=== PATIENT | female | born 1970 | race Caucasian/White ===

== ENCOUNTER 2019-04-05 11:02 | Outpatient (CLI) | payer MEDICAID, SELFPAY ==
[2019-04-05 11:07] VITALS: BMI 38.6
--- NOTE | 2019-04-05 11:10 | ECG_ITS ---
NAME OF STUDY: TREADMILL STRESS TEST INDICATION: Chest Pain EXERCISE DATA: The patient was exercised by Jaime protocol. Baseline heart rate was 110 beats per minute. Baseline blood pressure was 121/85 millimeters of mercury. Target heart rate was 171 beats per minute. Maximum heart rate achieved was 144, which was 84 % of the target heart rate. Maximum blood pressure was 152/92 millimeters of mercury. Total exercise time was 3 minutes 51 seconds. Maximum METs achieved was 7.0, maximum VO2 was 24.5. The reason for ending the test was symptom effort achieved. The patient complained of shortness of breath during the stress which then resolved. ELECTROCARDIOGRAM: BASELINE: Showed sinus rhythm, right axis, no significant ST-T changes at the baseline noted. No arrhythmia noted. EXERCISE: At the peak exercise level, no significant ST-T changes suggestive of ischemia noted. No arrhythmia noted. RECOVERY: During the recovery period, heart rate dropped appropriately. No significant ST-T changes suggestive of ischemia were noted. No arrhythmia noted. CONCLUSION: 1. Exercise capacity poor. 2. Heart rate response was tachycardic. 3. Blood pressure response was appropriate. 4. Symptoms not suggestive of ischemia. 5. Electrocardiogram portion of the stress test was not suggestive of ischemia. 6. This is suboptimal stress test due to poor exercise capacity therefore sensitivity and specificity of EKG portionof the stress test will be low. Electronically Signed On 04-05-2019 14:13:12 HOME DEPOT REP by Oneyda Yuen M.D. [email or web address]
[2019-04-05 12:04] VITALS: BP 103/69; PULSE 69
== END 2019-04-05 11:03 | disposition home or self-care (01) ==
PROVIDERS: Family Provider Family Medicine; PCP Family Medicine; Visit Provider Nurse Practitioner Family
DX: I49.9 Cardiac arrhythmia, unspecified (principal); Z82.49 Family history of ischemic heart disease and other diseases of the circulatory system; R06.00 Dyspnea, unspecified; R07.9 Chest pain, unspecified
CPT/HCPCS: 93017

== ENCOUNTER 2019-11-03 13:25 | Emergency (ER) | payer MEDICAID, SELFPAY ==
[2019-11-03 13:29] VITALS: BP 117/80; PULSE 84; RESP 18; TEMP 36.7; O2SAT 95; BMI 39.8
--- NOTE | 2019-11-03 13:42 | W.ED.EXTPRO ---
HPI - Extremity Problem General: Chief complaint: Extremity Problem,Nontraumatic Stated complaint: KNEE PAIN Time Seen by Provider: 11/03/19 13:30 History of Present Illness: HPI Narrative: Patient complains of twisting right knee yesterday and and knee hurting since. Patient arrived via ambulance because she had no ride in. Patient is on pain contract with the pain clinic in [place] says she only receives Celebrex for her pain. Complaint: joint pain Onset (ago): day(s) Pain Consistency: constant Location: right and knee Severity scale (1-10): 5 Quality: aching Radiation: none Relieving factors: immobilization Exacerbating factors: range of motion and weight bearing Associated symptoms: Reports no associated symptoms; Deny chest pain, fever(s) or rash Review of Systems Const: Denies: fever(s), chills or body aches Eyes: Denies: change in vision or blurry vision ENMT: Denies: throat pain or nasal congestion Card: Denies: chest pain or dyspnea on exertion Resp: Denies: dyspnea, productive cough or non-productive cough GI: Denies: abdominal pain, nausea or vomiting Musc: Reports: joint pain (Twisted knee while walking no bony injury that she is aware of); Denies: extremity pain Skin/Breast: Denies: rash Neuro: Denies: headache(s) Psych: Denies: anxiety or depression Felix/Lymph: Denies: easy bruising [facility] ED PFSH: Medical History (Updated 11/03/19 @ 13:45 by SALAZAR Boone) Other pulmonary embolism without acute cor pulmonale Family History Other Diabetes Heart disease Hypertension Lung disease Social History Smoking and tobacco status: current every day smoker cigarettes Packs smoked per day: 0.5 and e-cigarettes E-Cigarette Details: vaporizer device and with nicotine Physical Exam Const: COMMON NORMALS: no acute distress, average body habitus and patient oriented x3 HENMT: COMMON NORMALS: normocephalic HEAD & SCALP: normal to inspection and normocephalic FACE & SINUS: normal facial exam Eye: COMMON NORMALS: conjunctivae normal GENERAL EYE: appearance normal, both eyes and all related structures CONJUNCTIVA: Yes conjunctivae normal Neck/C-Spine: COMMON NORMALS: no JVD Chest: COMMONS NORMALS: normal inspection of the chest Resp: COMMON NORMALS: normal respiratory effort and clear to auscultation bilaterally AUSCULTATION: clear to auscultation bilaterally Cardio: COMMON NORMALS: no JVD, regular rate and regular rhythm RATE: regular rate RHYTHM: regular rhythm GI: COMMON NORMALS: Normal to inspection, nondistended, normoactive bowel sounds present Extremity: RIGHT LOWER EXTREMITY: Yes knee joint (Mild pain with range of motion does have no laxity noted possible mild swelling but patient is obese no erythema noted distal neurovascular intact.) Neuro: COMMON NORMALS: patient oriented x3 Course Vital Signs: Vital signs: Vital Signs Temperature 98.1 F 11/03/19 13:29 Pulse Rate 84 11/03/19 13:29 Respiratory Rate 18 11/03/19 13:29 Blood Pressure 117/80 11/03/19 13:29 Pulse Oximetry 95 11/03/19 13:29 Discharge Plan Discharge Patient Disposition: Home Clinical Impression: Knee sprain Qualifiers: Encounter type: initial encounter Involved ligament of knee: unspecified ligament Laterality: right Qualified Code(s): S83.91XA - Sprain of unspecified site of right knee, initial encounter Condition: Stable Prescriptions: New tramadol 50 mg tablet 50 mg PO Q8H PRN (Reason: pain) Qty: 7 RF: 0 No Action duloxetine [Cymbalta] 60 mg capsule,delayed release(DR/EC) 60 mg PO BID RF: 0 hydroxyzine pamoate [Vistaril] 25 mg capsule 50 mg PO .QHS PRNRF: 0 aripiprazole [Abilify] 2 mg tablet 2 mg PO ONCE RF: 0 mirtazapine [Remeron] 30 mg tablet 30 mg PO .QHS RF: 0 sennosides [senna] 8.6 mg tablet 34.4 mg PO .QHS RF: 0 nitroglycerin [Nitrostat] 0.4 mg tablet, sublingual 0.4 mg SUBLINGUAL Q5M PRNRF: 0 oxycodone-acetaminophen 10-325 mg tablet 1 tab PO Q4H PRNRF: 0 sumatriptan succinate 100 mg tablet 100 mg PO ONCE PRN (Reason: migraine headache) RF: 0 omeprazole 40 mg capsule,delayed release(DR/EC) 40 mg PO DAILY RF: 0 albuterol sulfate 90 mcg/actuation HFA aerosol inhaler 2 puff INHALATION QID PRN (Reason: shortness of breath) RF: 0 tizanidine 4 mg capsule 4 mg PO TID PRNRF: 0 ibuprofen 600 mg tablet 600 mg PO TID PRN (Reason: fever or pain) RF: 0 Discharge Orders: Discharge Order (Routine); Ordered 11/03/19 Ordered By: Rafal Rea Referrals: Cindi Horn MD [Primary Care Provider] - Discharge Diet: Usual diet Discharge Activity: Increase activity as tolerated and Use walker/crutches as instructed Patient Instructions: Knee Sprain (ED) Activity Restrictions/Additional Instructions: Follow-up with medical provider as directed. Take medications as prescribed. Return to the ER or your medical provider if condition worsens. Please read and understand discharge instructions. If any questions ask please. Apply ice to the knee as needed follow-up Dr. Horn for consultation notify pain clinic that you were given tramadol in the ER. Coding Level of Care Code ED Package Center Supervisor for Dodieg Fwd Exam Comprehensive
[2019-11-03 14:35] VITALS: BP 118/74; PULSE 82; RESP 18; O2SAT 92
== END 2019-11-03 14:44 | disposition home or self-care (01) ==
LOC: ER 13:54
PROVIDERS: Emergency Provider Nurse Practitioner Family; PCP Family Medicine
DX: S83.91XA Sprain of unspecified site of right knee, initial encounter (principal); F17.210 Nicotine dependence, cigarettes, uncomplicated; X50.1XXA Overexertion from prolonged static or awkward postures, initial encounter
CPT/HCPCS: 12345; 29530; 99281; 99283; E0114

== ENCOUNTER 2019-11-24 10:38 | Outpatient (CLI) | payer MEDICAID, SELFPAY ==
--- NOTE | 2019-11-24 10:45 | XR_ITS ---
WS: [id number] KNEE RIGHT TECHNIQUE: 4 views of the right knee CLINICAL INFORMATION: RIGHT KNEE PAIN COMPARISON: None. FINDINGS: Right knee is normal in appearance. No evidence of acute fracture dislocation. No significant effusio n. Patella is normal. XR/XR knee RT 4V [id number] IMPRESSION: Normal right knee.
== END 2019-11-24 10:39 | disposition home or self-care (01) ==
LOC: RADWPI 10:42
PROVIDERS: PCP Nurse Practitioner Family; Visit Provider Nurse Practitioner Family
DX: M25.561 Pain in right knee (principal)
CPT/HCPCS: 73564

== ENCOUNTER 2023-01-14 09:26 | Outpatient (CLI) | payer MEDICAID, SELFPAY ==
--- NOTE | 2023-01-14 11:00 | ECG_ITS ---
[facility] Test Date: 2023-01-14 Pat Name: Maria A Camp Department: Room: Gender: Female [employer]: : 1970 Requested By: Finn Nayak Order Number: [id number] Fran MD: Lorena Gilman M.D. Interpretive Statements NAME OF STUDY: LEXISCAN SESTAMIBI STRESS TEST INDICATION: Chest Pain PROCEDURE: At the baseline, the blood pressure was 131/79 mmHg with a heart rate of 77 bpm. The electrocardiogram showed sinus rhythm, normal axis with normal ST and T's. ??? The Lexiscan was infused over a period of 20 seconds. A total of 0.4 milligrams of Lexiscan was infused. The stress phase was continued for a total of 5 minutes. Heart rate at the end of the stress phase was 98 bpm with a blood pressure of 121/82 mmHg. The EKG at the peak infusion revealed sinus rhythm with no significant ST-T wave changes. ??? Sestamibi was injected 20 seconds after the Lexiscan infusion. ??? Blood pressure at the end of the recovery phase was 119/82 mmHg with a heart rate of 97 beats per minute. ??? CONCLUSION: 1. No significant EKG changes with the LexiScan infusion. 2. No LexiScan induced chest pain or cardiac arrhythmia. 3. Normal blood pressure and heart rate response. 4. Sestamibi/sestamibi perfusion scan pending; see separate report. Electronically Signed On 01-14-2023 15:48:40 CDT by Lorena Gilman M.D. [email or web address]
--- NOTE | 2023-01-14 11:07 | NMCV_ITS ---
NM kanika perf SPECT r/s* [id number] Maria A Camp Age: 52 Gender: F : 1970 Exam Date: 01/14/2023 11:08 Ordering Phys: Finn Nayak M.D Technologist: ELFEGO Miller Exam Location: [facility] Indications: CHEST PAIN, SHORTNESS OF BREATH STRESS TEST Please see separate stress test report in [facility] for full findings IMAGE PROTOCOL Rest/Stress 1 Lexiscan Day Radiopharmaceutical Dose (mCi) Administration Site Administered by Rest: Tc-99m 10.9 IV ELFEGO [place] Sestamibi Stress:Tc-99m 32.9 IV ELFEGO [place] Sestamibi Rest: 14-Jan-2023 60 Discovery 630 Stress: 14-Jan-2023 30 Discovery 630 0.4mg Lexiscan. Images obtained in supine and prone position. SPECT RESULTS Technical Quality: Excellent Raw Data Analysis: Normal Image Corrections: No attenuation or motion correction applied Summed Stress Score: 0 Summed Rest Score: 0 Summed Difference Score: 0 PERFUSION FINDINGS SPECT images demonstrate homogeneous tracer distribution throughout the myocardium. FUNCTIONAL RESULTS (calculated via Gated SPECT) Stress Image LV EF (%): 59 Stress EDV (mL):87 TID: 0.83 Stress ESV (mL):36 FUNCTIONAL FINDINGS: The left ventricle is normal in size. Transient Ischemia Dilatation of 0.83. The left ventricular ejection fraction is normal with a value of 59%. There is normal left ventricular wall thickening. IMPRESSIONS 1. Myocardial perfusion imaging is normal. 2. Overall left ventricular systolic function is normal without regional wall motion abnormalities, LVEF=59%. 3. No EKG changes with Lexiscan infusion. Refer to separate report for details. 4. Scan indicates low risk for cardiac events. Lorena Gilman MD (Electronically Signed) Final Date: 14 January 2023 15:46 S
[2023-01-14 11:10] VITALS: BMI 30.9
[2023-01-14] MEDS: regadenoson 0.4 Mg/5 ml Syringe IVP (12:02)
--- NOTE | 2023-01-14 13:29 | USCV_ITS ---
Maria A Camp Age: 52 Gender: F : 1970 Exam Date: 01/14/2023 14:02 Ordering Phys: Finn Nayak M.D Technologist: Exam Location: [facility] [place] Indication: chest pain, palpitations BP: 130 / 75 HR: 69 Rhythm: Sinus Technical Quality: Adequate MEASUREMENTS (Male / Female) Normal Values 2D ECHO LVOT Diameter 2.1 cm LV Ejection Fraction MOD 2C 69.8 % LV Ejection Fraction 2C AL 69.7 % LA Diameter 2.7 cm M-MODE Aortic Annulus Diameter 3.5 cm LA Ao Ratio MM 0.8 MV E Point Septal Separation 1.2 cm DOPPLER AV Peak Velocity 125.0 cm/s LVOT Peak Velocity 98.0 cm/s AV Area Cont Eq vti 2.9 cm squared AV Area Cont Eq pk 2.6 cm squared MV Area PHT 3.7 cm squared Mitral E to A Ratio 0.8 MV E' Velocity 43.5 cm/s Mitral E to MV E' Ratio 6.5 Mitral E to LV E' Lateral Ratio 6.2 Mitral E to LV E' Septal Ratio 6.9 TR Peak Velocity 106.3 cm/s TR Peak Gradient 4.5 mmHg TV Peak E Velocity 98.0 cm/s Right Atrial Pressure 3.0 mmHg Pulmonary Artery Systolic Pressu 7.5 mmHg FINDINGS Left Ventricle Normal left ventricular size, systolic function and wall thickness, with no regional wall motion abnormalities. Left ventricular ejection fraction is estimated at 60 %. Abnormal septal motion. Normal diastolic function. Right Ventricle Normal right ventricular size and systolic function. RVSP could not be calculated due to incomplete tricuspid regurgitation velocity profile. Right Atrium Normal right atrial size. Left Atrium Normal left atrial size. Mitral Valve Structurally normal mitral valve. No mitral valve stenosis. No mitral valve regurgitation. Aortic Valve Structurally normal trileaflet aortic valve. No aortic valve stenosis. No aortic valve regurgitation. Tricuspid Valve Structurally normal tricuspid valve. No tricuspid valve stenosis. Trace tricuspid valve regurgitation. Pulmonic Valve Structurally normal pulmonic valve. No pulmonary valve stenosis. No pulmonary valve regurgitation. Pericardium No pericardial effusion. Aorta Normal size aortic root and proximal ascending aorta. IVC Inferior vena cava not visualized. CONCLUSIONS 1. Normal left ventricular size, systolic function and wall thickness, with no regional wall motion abnormalities. Left ventricular ejection fraction is estimated at 60 %. Abnormal septal motion. Normal diastolic function. 2. No significant valvular abnormality. 3. No change when compared to study dated 01/15/2016. Lorena Gilman MD (Electronically Signed) Final Date: 14 January 2023 15:53 S
[2023-01-14 14:07] VITALS: BP 119/82; PULSE 97
== END 2023-01-14 09:27 | disposition home or self-care (01) ==
LOC: RAD 09:28
PROVIDERS: PCP Nurse Practitioner Family; Visit Provider Internal Medicine Cardiovascular Disease
DX: I49.9 Cardiac arrhythmia, unspecified (principal); R07.9 Chest pain, unspecified; R06.09 Other forms of dyspnea; R55 Syncope and collapse
CPT/HCPCS: 36415; 78452; 93017; 93306; 96374; A9500; J2785

== ENCOUNTER 2023-03-18 13:05 | Outpatient (CLI) | payer MEDICAID, SELFPAY ==
--- NOTE | 2023-03-18 13:14 | CTR_ITS ---
PROCEDURE INFORMATION: Exam: CT Neck With Contrast Exam date and time: 03/18/2023 2:07 PM Age: 53 years old Clinical indication: Prior surgery; Surgery date: 6+ months; Surgery type: Ear implant; Patient HX: C/O pain behind left ear with vibrating sensation. ; Additional info: Otalgia, L ear TECHNIQUE: Imaging protocol: Computed tomography of the neck with contrast. Radiation optimization: All CT scans at this facility use at least one of these dose optimization techniques: automated exposure control; mA and/or kV adjustment per patient size (includes targeted exams where dose is matched to clinical indication); or iterative reconstruction. Contrast material: OMNI 350; Contrast volume: 100 ml; Contrast route: INTRAVENOUS (IV); REPORTING DATA: Count of CT and Cardiac NM exams in prior 12 months: This patient has received [address] and 0 known cardiac nuclear medicine studies in the 12 months prior to the current study. COMPARISON: CT angio chest PE protcl [id number] 02/28/2019 9:36 PM RADIATION DOSE METRICS: Total DLP (mGy-cm): 173.02 FINDINGS: Pharynx: Unremarkable. No significant tonsillar enlargement. Larynx: Unremarkable. Epiglottis is normal. Prevertebral and retropharyngeal spaces: Unremarkable. Salivary glands: Normal. Glands are normal in size. Thyroid: Normal. No enlarged or calcified nodules. Lymph nodes: Mild lymph node enlargement in left submandibular space. Largest node measures up to 1.3 cm. Trachea: Visualized trachea is unremarkable. Lungs: Unremarkable as visualized. Bones/joints: Mild cervical spondylosis. Soft tissues: Unremarkable. No significant soft tissue swelling. CT/CT neck w con* [id number] IMPRESSION: Mild lymph node enlargement in left submandibular space. Largest node measures up to 1.3 cm. No definite mass lesion or evidence of abscess.
[2023-03-18] MEDS: iohexol 350 mg/mL 500 mL Btl (per mL) IV (14:07)
== END 2023-03-18 13:06 | disposition home or self-care (01) ==
LOC: RAD 13:06
PROVIDERS: PCP Nurse Practitioner Family; Visit Provider Specialist
DX: H92.02 Otalgia, left ear (principal); R59.0 Localized enlarged lymph nodes
CPT/HCPCS: 70491; Q9967

== ENCOUNTER 2023-04-17 10:21 | Outpatient (CLI) | payer MEDICAID, SELFPAY ==
--- NOTE | 2023-04-17 10:31 | XR_ITS ---
WS: [id number] XR knee LT 3V* [id number] REASON FOR EXAM: L KNEE PAIN FINDINGS: No fracture or focal bone lesion. Mild narrowing of the medial knee joint space with moderate subchondral sclerosis and mild marginal o steophytosis. Mild narrowing of the lateral knee joint space with moderate subchondral sclerosis and mild marginal osteophytosis. The patellofemoral joint space appears intact and relatively well preserved. There is mild subchondra l sclerosis and osteophytosis of the patella. IMPRESSION: Moderate osteoarthritis of the left knee.
== END 2023-04-17 10:22 | disposition home or self-care (01) ==
PROVIDERS: PCP Nurse Practitioner Family; Visit Provider Family Medicine
DX: M17.12 Unilateral primary osteoarthritis, left knee (principal)
CPT/HCPCS: 73562

== ENCOUNTER 2023-05-15 13:30 | Outpatient (CLI) | payer MEDICAID, SELFPAY ==
--- NOTE | 2023-05-15 13:35 | CT_ITS ---
WS: [id number] LDCT LUNG CANCER SCREENING TECHNIQUE: Noncontrast CT of the chest with coronal and sagittal reformatted images. CLINICAL INFORMATION: NICOTINE DEPENDENCE, MORE THAN 20 PACK YEARS COMPARISON: None. DLP: 57.71 mGy.cm DIvol: Mean CTDIvol: 1.40 (mGy) All CT scans at [facility] use at least one of these dose optimization techniques: automat ed exposure control; mA and/or kV adjustment per patient size (includes targeted exams where dose is matched to clinical indication); or iterative reconstruction. FINDINGS: Lungs are well aerated. No acute pulmonary infiltrates. No suspicious pulmonary parenchymal opacities. Normal caliber thoracic aorta. No mediastinal or hilar lymphadenopathy. No axillary lymphadenopathy. Cholecystectomy clips. IMPRESSION: CT/CT lung screening [id number] LUNG-RADS: 1-Negative FOLLOW UP: 12 Month: Continue annual screening with LDCT
== END 2023-05-15 13:31 | disposition home or self-care (01) ==
LOC: RAD 13:31
PROVIDERS: PCP Nurse Practitioner Family; Visit Provider Family Medicine
DX: F17.210 Nicotine dependence, cigarettes, uncomplicated (principal)
CPT/HCPCS: 71271

== ENCOUNTER 2023-06-02 10:11 | Outpatient (CLI) | payer MEDICAID, SELFPAY ==
--- NOTE | 2023-06-02 11:30 | MM_ITS ---
WS: [id number] BILATERAL 3D TOMOSYNTHESIS DIGITAL SCREENING MAMMOGRAPHY WITH CAD CLINICAL INFORMATION: SCREENING HISTORY: Screening mammogram. No current complaints. COMPARISON: 2021 TECHNIQUE: Bilateral CC and MLO views. FINDINGS: Scattered fibroglandular densities bilaterally. No suspicious focal mass, asymmetry, calcifications, or architectural distortion. No evidence of malignancy. Incidental punctate calcifications. IMPRESSION: MM/[place] [id number] BI-RADS: 2-Benign FOLLOW UP: 1 Year Follow-up Recommend return to annual screening mammography.
== END 2023-06-02 10:12 | disposition home or self-care (01) ==
LOC: MOBLMAM 10:18
PROVIDERS: PCP Family Medicine; Visit Provider Family Medicine
DX: Z12.31 Encounter for screening mammogram for malignant neoplasm of breast (principal); R92.323 Mammographic fibroglandular density, bilateral breasts
CPT/HCPCS: 77063; 77067

== ENCOUNTER → 2023-06-08 09:13 | Outpatient (BNVA) | payer MEDICAID, SELFPAY | PROVIDERS: PCP Family Medicine; Referring Provider Family Medicine; Visit Provider Specialist | DX: M17.12 Unilateral primary osteoarthritis, left knee | CPT/HCPCS: 73560; 73565; 99204 ==

== ENCOUNTER 2023-08-07 09:27 | Outpatient (CLI) | payer MEDICAID, SELFPAY ==
--- NOTE | 2023-08-07 09:32 | US_ITS ---
WS: [id number] ULTRASOUND SOFT TISSUES RIGHT inguinal and symphyseal area. HISTORY: VULVAR PAIN COMPARISON: None available. TECHNIQUE: 2-D and color Doppler imaging is submitted. Peristalsing loop of GI tract extends along the RIGHT inguinal canal over the symphysis pubis. This c orresponds to the area of pain and discomfort. This is a significant portion of peristalsing bowel bu t no strangulation is identified. US/US soft tissue/extremity [id number] IMPRESSION: Large RIGHT inguinal hernia extends inferiorly over the symphysis pubis. No str angulation at this time. Recommend surgical evaluation.
== END 2023-08-07 09:28 | disposition home or self-care (01) ==
LOC: RAD 09:27
PROVIDERS: PCP Family Medicine; Visit Provider Family Medicine
DX: R10.2 Pelvic and perineal pain (principal); K40.90 Unilateral inguinal hernia, without obstruction or gangrene, not specified as recurrent; R19.2 Visible peristalsis
CPT/HCPCS: 76882

== ENCOUNTER → 2023-08-31 09:30 | Outpatient (BNVA) | payer MEDICAID, SELFPAY | PROVIDERS: PCP Family Medicine; Referring Provider Family Medicine; Visit Provider Surgery | DX: K40.20 Bilateral inguinal hernia, without obstruction or gangrene, not specified as recurrent; K59.04 Chronic idiopathic constipation | CPT/HCPCS: 99204 ==

== ENCOUNTER → 2023-11-12 10:30 | Outpatient (BNVA) | payer MEDICAID, SELFPAY | PROVIDERS: PCP Family Medicine; Visit Provider Surgery | DX: Z98.890 Other specified postprocedural states (principal); Z87.19 Personal history of other diseases of the digestive system | CPT/HCPCS: 99024 ==

== ENCOUNTER → 2023-12-09 10:01 | Outpatient (BNVA) | payer MEDICAID, SELFPAY | PROVIDERS: PCP Family Medicine; Visit Provider Specialist | DX: M17.12 Unilateral primary osteoarthritis, left knee (principal) | CPT/HCPCS: 73560; 73565; 99214 ==

== ENCOUNTER 2023-12-30 13:14 | Outpatient (CLI) | payer MEDICAID, SELFPAY ==
--- NOTE | 2023-12-30 13:17 | CT_ITS ---
WS: [id number] CT LEFT KNEE POST ARTHROGRAM. HISTORY: left knee pain Technique: All CT scans at [facility] use at least one of these dose optimization techniques: automated exposure control; mA and/or kV adjustment per patient size (includes targeted exams where dose is matched to clinical indication); or iterative reconstruction. DLP: 490.71 mGy.cm COMPARISON: None available. Adequate contrast injection of the knee joint. There is both a mixture of intra-articular and extra-a rticular contrast due to difficulty accessing the joint space. No acute fractures are identified. Slight lateral subluxation of the patella. Mild narrowing of the m edial and lateral compartment, greatest medially with marginal osteophytes. Patellar cartilage is well-preserved. No loose body in the joint effusion. Mild narrowing medial compartment. Osteophytic ridging around the femoral condyle and tibial plateau. Contrast extends partially into the posterior horn of the medial meniscus. Additional contrast exten ds into the medial posterior horn. Lateral compartment with minimal narrowing. No definite meniscal tears are noted in the lateral celestino rtment. CT/CT knee LT w con [id number] IMPRESSION: 1. Tear in the posterior horn of the medial meniscus. There is a partial horiz ontal tear and an additional tear extending into the meniscal root. 2. Mild tricompartment osteoarthritis with joint space narrowing.
--- NOTE | 2023-12-30 13:30 | IR_ITS ---
WS: [id number] LEFT KNEE ARTHROGRAM (FLUOROSCOPY) LEFT knee arthrogram was performed in fluoroscopy prior to CT evaluation. HISTORY: M17.12 - Unilateral primary osteoarthritis, left knee COMPARISON: None. FLUOROSCOPY TIME: 1min [id number] # of spot films: 1 Procedure, risks and complications were explained to the patient. Complications include but not limit ed to bleeding, infection and contrast reaction. Current medications are reviewed. Skin is cleansed with ChloraPrep. Skin is anesthetized with 1% buffered lidocaine. 22-gauge needle is inserted into the lateral patellofemoral joint. Approximately 30 cc of Omnipaque 240 injected withou t complication. Patient will proceed to CT evaluation immediately. No complications were encountered. Patient is instructed to watch for post procedure infection or ble eding. Patient is also instructed to contact the radiology department with any concerns. IR/[place] [id number] IMPRESSION: Uncomplicated LEFT knee joint injection prior to CT arthrogram.
[2023-12-30] MEDS: iohexol 240 mg/mL 50 mL Btl INTRATHECA (14:23)
== END 2023-12-30 13:15 | disposition home or self-care (01) ==
LOC: RAD 13:14
PROVIDERS: PCP Family Medicine; Visit Provider Specialist
DX: M17.12 Unilateral primary osteoarthritis, left knee (principal); S83.242A Other tear of medial meniscus, current injury, left knee, initial encounter
CPT/HCPCS: 27369; 73701; 77002

== ENCOUNTER → 2024-01-20 13:09 | Outpatient (BNVA) | payer MEDICAID, SELFPAY | PROVIDERS: PCP Family Medicine; Visit Provider Specialist | DX: M17.12 Unilateral primary osteoarthritis, left knee (principal); Z09 Encounter for follow-up examination after completed treatment for conditions other than malignant neoplasm | CPT/HCPCS: 20610; 99214; J1100; J2795; J3301 ==

== ENCOUNTER 2024-02-22 13:16 | Outpatient (CLI) | payer MEDICAID, SELFPAY ==
--- NOTE | 2024-02-22 13:21 | USR_ITS ---
PROCEDURE INFORMATION: Exam: US Pelvis, Transvaginal, Non-Obstetric Exam date and time: 02/22/2024 1:40 PM Age: 53 years old Clinical indication: Menstruation abnormalities; Irregular menstruation; Additional info: Abnormal uterine bleeding TECHNIQUE: Imaging protocol: Real-time transvaginal pelvic (non-obstetric) ultrasound with image documentation. Transvaginal imaging was used for better evaluation of the endometrium, adnexa, and/or cervix. COMPARISON: US soft tissue/extremity [id number] 08/07/2023 10:00 AM FINDINGS: Uterus: Uterus is normal. Endometrial stripe is normal. It measures 9 mm in thickness. Right ovary/adnexa: Obscured by bowel gas. Left ovary/adnexa: Obscured by bowel gas. Urinary bladder: Urinary bladder is limited. Intraperitoneal space: No free fluid. US/US transvaginal [id number] IMPRESSION: 1. Limited study. The ovaries are obscured. 2. No acute findings.
== END 2024-02-22 13:17 | disposition home or self-care (01) ==
LOC: RAD 13:17
PROVIDERS: PCP Family Medicine; Visit Provider Nurse Practitioner Family
DX: N93.9 Abnormal uterine and vaginal bleeding, unspecified (principal)
CPT/HCPCS: 76830

== ENCOUNTER → 2024-04-13 13:56 | Outpatient (BNVA) | payer MEDICAID, SELFPAY | PROVIDERS: PCP Family Medicine; Visit Provider Obstetrics & Gynecology | DX: Z01.419 Encounter for gynecological examination (general) (routine) without abnormal findings (principal) | CPT/HCPCS: 87624 ==

== ENCOUNTER → 2024-04-20 12:37 | Outpatient (BNVA) | payer MEDICAID, SELFPAY | PROVIDERS: PCP Family Medicine; Visit Provider Specialist | DX: M17.12 Unilateral primary osteoarthritis, left knee (principal) | CPT/HCPCS: 99214 ==

== ENCOUNTER 2024-04-22 15:57 | Outpatient (CLI) | payer MEDICAID, SELFPAY ==
--- NOTE | 2024-04-22 16:45 | USR_ITS ---
PROCEDURE INFORMATION: Exam: US Duplex Left Lower Extremity Veins, Limited Exam date and time: 04/22/2024 5:07 PM Age: 54 years old Clinical indication: Swelling (edema) of limb; Lower extremity, right; Additional info: Swelling of left leg TECHNIQUE: Imaging protocol: Real-time duplex ultrasound of the left extremity with 2-D bob scale, color Doppler flow and spectral waveform analysis including responses to compression and other maneuvers (when performed) with image documentation. Limited exam focused on the left lower extremity veins. COMPARISON: US soft tissue/extremity [id number] 08/07/2023 10:00 AM FINDINGS: Left deep veins: Unremarkable. The common femoral, femoral, proximal profunda femoral and popliteal veins are patent without thrombus. Normal Doppler waveforms. Normal compressibility and/or augmentation response. Superficial veins: Greater saphenous vein at the saphenofemoral junction is patent without thrombus. Soft tissues: Unremarkable. US/CV venous duplex [facility] [id number] IMPRESSION: No evidence of deep vein thrombosis.
== END 2024-04-22 15:58 | disposition home or self-care (01) ==
LOC: RAD 15:58
PROVIDERS: PCP Family Medicine; Visit Provider Family Medicine
DX: M79.89 Other specified soft tissue disorders (principal)
CPT/HCPCS: 93971

== ENCOUNTER → 2024-05-06 10:42 | Outpatient (BNVA) | payer MEDICAID, SELFPAY | PROVIDERS: PCP Family Medicine; Visit Provider Specialist | DX: M17.12 Unilateral primary osteoarthritis, left knee (principal); Z71.89 Other specified counseling | CPT/HCPCS: 20610; J1100; J2795; J3301 ==

== ENCOUNTER 2024-07-05 05:37 | Day surgery (SDC) | payer MEDICAID, SELFPAY ==
--- NOTE | 2024-07-05 02:00 | W.PM.OPSFHP ---
Same Day Surgery H&P Indication for Procedure/HPI DATE OF PROCEDURE: July 05, 2024 CHIEF COMPLAINT/INDICATIONFOR SURGICAL PROCEDURE: postmenopausal bleeding PREOP DIAGNOSIS: postmenopausal bleeding PLANNED PROCEDURE: Operation Date: 07/05/24 07:00 Proposed Procedures p Hysteroscopy w/ Endometrial [id number], N95.0(Not Applicable) - Yuri Ron MD s possible endometrial polypectomy(Not Applicable) - Yuri Ron MD 54 y.o. LNMP more than 3 years ago had bleeding for nine days in January 2024 now scheduled for hysteroscopy, endometrial sampling, possible endometrial polypectomy Medications/Allergies* Home Medications ?Medication ?Instructions ?Recorded ?Confirmed ?Type baclofen 10 mg tablet 10 mg PO PRN PRN Spasms 09/10/23 07/04/24 History Held on 09/10/23. Instructions: Resume on 09/12/23. fluticasone propionate 50 1 spray intranasal DAILY PRN 09/10/23 07/04/24 History mcg/actuation nasal allergies spray,suspension levocetirizine 5 mg PO DAILY 09/10/23 07/04/24 History levothyroxine 88 mcg tablet 88 mcg PO DAILY 09/10/23 07/04/24 History losartan 50 mg tablet 50 mg PO DAILY 09/10/23 07/04/24 History meloxicam 15 mg tablet 15 mg PO DAILY 09/10/23 07/04/24 History Held on 09/10/23. Instructions: Resume on 09/12/23. duloxetine 30 mg capsule,delayed 30 mg PO DAILY 04/13/24 07/04/24 History release docusate sodium 100 mg capsule 100 mg PO BID 07/04/24 07/04/24 History (Colace) Allergies/Adverse Reactions Allergy/AdvReac Type Severity Reaction Status Date / Time pregabalin (From Lyrica) Allergy Unknown lower Verified 05/06/24 10:52 extremity swelling gabapentin AdvReac Mild weight gain Verified 05/06/24 10:52 Pertinent History/Comorbid Conditions* Medical History (Updated 05/10/24 @ 23:26 by Yuri Ron MD) Spinal stenosis of lumbar region with radiculopathy Opiate analgesic contract exists Degenerative disc disease, cervical Cervical spine pain Spondylolisthesis at L5-S1 level Risk for falls Facet joint disease Lumbosacral facet joint syndrome Intervertebral disc disorders with radiculopathy, lumbar region Tobacco use Lumbar post-laminectomy syndrome Chronic back pain Morbid obesity with BMI of 45.0-49.9, adult Acute pain of left knee Radiating chest pain Spondylosis without myelopathy or radiculopathy, lumbar region Left lower quadrant pain Acute constipation Acute confusional migraine Mixed hyperlipidemia Palpitations Myalgia, unspecified site Other specified hypothyroidism Other pulmonary embolism without acute cor pulmonale Surgical History (Updated 11/12/23 @ 11:25 by Solitario Carlos DO) Status post bilateral inguinal hernia repair Family History (Updated 04/13/24 @ 09:39 by Octavia Isidro RN) Diabetes Mother Grandmother Heart disease Father Mother Brother Hyperlipidemia Mother Grandmother Lung disease Hypertension Mother Grandmother Grandfather Thyroid disease Mother Grandmother Stroke Mother Social History Smoking and tobacco/nicotine status: current every day tobacco/nicotine user (1/2 ppd) cigarettes Packs smoked per day: 0.5 and e-cigarettes E-Cigarette Details: vaporizer device and with nicotine Current gender identity: Female Pertinent Exam Findings alert, oriented x 3, clear to auscultation bilaterally and regular rate & rhythm Recommendations Surgery/Procedure today Coding Level of Care Code Acute Code for Chg Fwd
[2024-07-05 06:13] VITALS: BP 137/96; PULSE 90; RESP 16; TEMP 36.2; O2SAT 95; BMI 35.7
[2024-07-05] MEDS: sodium chloride 0.9% 1,000 ML 30 ML IV (06:29)
--- NOTE | 2024-07-05 11:02 | SUR.PREOP ---
Per patient stated that she took Zebound Thursday which needed to be held one week prior to surgery,per anesthesia protocol, it was not on her active med list but upon further inquiry by [employer] anesthesia student found this out and pt cancelled and to be rescheduled for possibly next Thursday. Instructed patient to NOT take her Zebound this thursday if surgery scheduled for next Thursday and she verbalized understanding
--- NOTE | 2024-07-05 12:24 | P.ANESPOST_ITS ---
Inpatient post-anesthesia follow up: Vital signs: Temperature 97.1 F Pulse Rate 90 Respiratory Rate 16 Blood Pressure 137/96 Pulse Oximetry 95 Oxygen Delivery Me thod Room Air Oxygen Flow Rate Fraction of Inspir ed Oxygen Hydration adequate: Yes Nausea and vomiting: No Pain level: Con trolled Mental status: Baseline
== END 2024-07-05 06:50 | disposition home or self-care (01) ==
PROVIDERS: PCP Family Medicine; Visit Provider Obstetrics & Gynecology
PROC: 0UJD8ZZ Inspection of Uterus and Cervix, Via Natural or Artificial Opening Endoscopic (ICD-10-PCS; CPT 58555; principal; 2024-07-05 07:00)
DX: N95.0 Postmenopausal bleeding (principal); E78.2 Mixed hyperlipidemia; E03.8 Other specified hypothyroidism; Z79.890 Hormone replacement therapy; F17.210 Nicotine dependence, cigarettes, uncomplicated; F17.290 Nicotine dependence, other tobacco product, uncomplicated; Z79.899 Other long term (current) drug therapy; Z88.8 Allergy status to other drugs, medicaments and biological substances; Z79.85 Long-term (current) use of injectable non-insulin antidiabetic drugs; Z53.8 Procedure and treatment not carried out for other reasons
CPT/HCPCS: 58558; J1100; J2371; J2405; J2704; J3010; J3490; J7030

== ENCOUNTER 2024-08-09 09:04 | Day surgery (SDC) | payer MEDICAID, SELFPAY ==
[2024-08-09] VITALS (10 sets, daily range): BP systolic 142–184; BP diastolic 91–107; PULSE 65–91; RESP 16–18; TEMP 36.1–36.7; O2SAT 92–97; BMI 35.7
--- NOTE | 2024-08-09 01:07 | W.PM.OPSFHP ---
Same Day Surgery H&P Indication for Procedure/HPI DATE OF PROCEDURE: August 09, 2024 CHIEF COMPLAINT/INDICATIONFOR SURGICAL PROCEDURE: abnormal uterine bleeding PREOP DIAGNOSIS: postmenopausal bleeding PLANNED PROCEDURE: Operation Date: 08/09/24 10:30 Proposed Procedures p Hysteroscopy w/ Endometrial Sampling(Not Applicable) - Yuri Ron MD s possible endometrial polypectomy(Not Applicable) - Yuri Ron MD Medications/Allergies* Home Medications ?Medication ?Instructions ?Recorded ?Confirmed ?Type baclofen 10 mg tablet 10 mg PO PRN PRN Spasms 09/10/23 08/08/24 History Held on 09/10/23. Instructions: Resume on 09/12/23. fluticasone propionate 50 1 spray intranasal DAILY PRN 09/10/23 08/08/24 History mcg/actuation nasal allergies spray,suspension levocetirizine 5 mg PO DAILY 09/10/23 08/08/24 History levothyroxine 88 mcg tablet 88 mcg PO DAILY 09/10/23 08/08/24 History losartan 50 mg tablet 50 mg PO DAILY 09/10/23 08/08/24 History meloxicam 15 mg tablet 15 mg PO DAILY 09/10/23 08/08/24 History Held on 09/10/23. Instructions: Resume on 09/12/23. duloxetine 30 mg capsule,delayed 30 mg PO DAILY 04/13/24 08/08/24 History release docusate sodium 100 mg capsule 100 mg PO BID 07/04/24 08/08/24 History (Colace) semaglutide 0.25 mg or 0.5 mg (2 2 mg SUBCUT Q7D 08/08/24 08/08/24 History mg/1.5 mL) subcutaneous pen injector (Ozempic) Allergies/Adverse Reactions Allergy/AdvReac Type Severity Reaction Status Date / Time pregabalin (From Lyrica) Allergy Unknown lower Verified 07/14/24 07:59 extremity swelling gabapentin AdvReac Mild weight gain Verified 07/14/24 07:59 Pertinent History/Comorbid Conditions* Medical History (Updated 05/10/24 @ 23:26 by Yuri Ron MD) Spinal stenosis of lumbar region with radiculopathy Opiate analgesic contract exists Degenerative disc disease, cervical Cervical spine pain Spondylolisthesis at L5-S1 level Risk for falls Facet joint disease Lumbosacral facet joint syndrome Intervertebral disc disorders with radiculopathy, lumbar region Tobacco use Lumbar post-laminectomy syndrome Chronic back pain Morbid obesity with BMI of 45.0-49.9, adult Acute pain of left knee Radiating chest pain Spondylosis without myelopathy or radiculopathy, lumbar region Left lower quadrant pain Acute constipation Acute confusional migraine Mixed hyperlipidemia Palpitations Myalgia, unspecified site Other specified hypothyroidism Other pulmonary embolism without acute cor pulmonale Surgical History (Updated 11/12/23 @ 11:25 by Solitario Carlos DO) Status post bilateral inguinal hernia repair Family History (Updated 04/13/24 @ 09:39 by Octavia Isidro RN) Diabetes Mother Grandmother Heart disease Father Mother Brother Hyperlipidemia Mother Grandmother Lung disease Hypertension Mother Grandmother Grandfather Thyroid disease Mother Grandmother Stroke Mother Social History Smoking and tobacco/nicotine status: current every day tobacco/nicotine user (1/2 ppd) cigarettes Packs smoked per day: 0.5 and e-cigarettes E-Cigarette Details: vaporizer device and with nicotine Current gender identity: Female Pertinent Exam Findings alert, oriented x 3, clear to auscultation bilaterally and regular rate & rhythm Recommendations Surgery/Procedure today Coding Level of Care Code Acute Code for Chg Fwd
--- NOTE | 2024-08-09 09:25 | W.PM.OPSUD ---
Surgery/Procedure H&P Update DATE OF PROCEDURE: August 09, 2024 DATE H&P PERFORMED: 08/09/24 H&P UPDATE INFORMATION: I have reviewed H&P completed within last 30 days, I have examined patient prior to procedure and No changes to prior documentation PREOP DIAGNOSIS: abnormal uterine bleeding PLANNED PROCEDURE: Operation Date: 08/09/24 10:30 Proposed Procedures p Hysteroscopy w/ Endometrial Sampling(Not Applicable) - Yuri Ron MD s possible endometrial polypectomy(Not Applicable) - Yuri Ron MD
[2024-08-09] MEDS: sodium chloride 0.9% 1,000 ML 30 ML IV (09:28)
--- NOTE | 2024-08-09 10:07 | ANES.PREANE2 ---
Pre-Anesthetic Assessment Height/Weight: Height 5 ft 3 in Weight 202 lb Temp Pulse Resp BP Pulse Ox O2 Del Method 97.2 F L 91 16 142/96 95 Room Air 08/09/24 09:22 08/09/24 09:22 08/09/24 09:22 08/09/24 09:22 08/09/24 09:22 08/09/24 09:25 Preop Diagnosis: abnormal uterine bleeding Operation Date: 08/09/24 10:30 Proposed Procedures p Hysteroscopy w/ Endometrial Sampling(Not Applicable) - Yuri Ron MD s possible endometrial polypectomy(Not Applicable) - Yuri Ron MD Was Beta Sarina taken within 24 hours: N/A Was Clonidine taken within 24 hours: N/A Last intake: Intake Last Liquid Date 08/08/24 Last Liquid Time 21:00 Last Solid Date 08/08/24 Last Solid Time 17:00 Social No alcohol and No tobacco Exam alert, oriented x 3, clear to auscultation bilaterally and regular rate & rhythm Airway Submandibular: within normal limits Cervical ROM: within normal limits Mallampati: Class II Dentition: full Anesthetic Plan ASA status: 3 Anesthesia: General Other: No prior issues with anesthesia NPO since yesterday evening History of hypothyroidism on Synthroid Hypertension on losartan Patient has been taking Ozempic, last taken 07/23/2024 Prior PE that she states was from vaping. Patient no longer smokes Plan for general anesthesia Medications/Allergies Home Medications ?Medication ?Instructions ?Recorded ?Confirmed ?Last Taken ?Type baclofen 10 mg tablet 10 mg PO PRN PRN Spasms 09/10/23 08/08/24 08/08/24 History Held on 09/10/23. Instructions: Resume on 09/12/23. fluticasone propionate 50 1 spray intranasal DAILY PRN 09/10/23 08/08/24 08/08/24 History mcg/actuation nasal allergies spray,suspension levocetirizine 5 mg PO DAILY 09/10/23 08/08/24 08/07/24 History levothyroxine 88 mcg tablet 88 mcg PO DAILY 09/10/23 08/09/24 08/09/24 History losartan 50 mg tablet 50 mg PO DAILY 09/10/23 08/08/24 08/08/24 History meloxicam 15 mg tablet 15 mg PO DAILY 0608/08/24 08/08/24 History Held on 09/10/23. Instructions: Resume on 09/12/23. Hinged Knee Brace #1 ea 02/04/24 07/14/24 Unknown Rx duloxetine 30 mg capsule,delayed 30 mg PO DAILY 04/13/24 08/08/24 08/08/24 History release docusate sodium 100 mg capsule 100 mg PO BID 07/04/24 08/08/24 08/08/24 History (Colace) semaglutide 0.25 mg or 0.5 mg (2 2 mg SUBCUT Q7D 08/08/24 08/08/24 07/23/24 History mg/1.5 mL) subcutaneous pen injector (Ozempic) Allergies Allergy/AdvReac Type Severity Reaction Status Date / Time pregabalin (From Lyrica) Allergy Unknown lower Verified 07/14/24 07:59 extremity swelling gabapentin AdvReac Mild weight gain Verified 07/14/24 07:59 Current Medications Generic Name Dose Route Start Last Admin Trade Name Freq PRN Reason Stop Dose Admin Sodium Chloride 1,000 mls @ 30 mls/hr 08/09/24 09:15 08/09/24 09:28 Sodium Chloride 0.9% IV 08/10/24 09:14 30 mls/hr .Q24H CORA Administration PFSH Anesthesia Medical History Spinal stenosis of lumbar region with radiculopathy Opiate analgesic contract exists Degenerative disc disease, cervical Cervical spine pain Spondylolisthesis at L5-S1 level Risk for falls Facet joint disease Lumbosacral facet joint syndrome Intervertebral disc disorders with radiculopathy, lumbar region Tobacco use Lumbar post-laminectomy syndrome Chronic back pain Morbid obesity with BMI of 45.0-49.9, adult Acute pain of left knee Radiating chest pain Spondylosis without myelopathy or radiculopathy, lumbar region Left lower quadrant pain Acute constipation Acute confusional migraine Mixed hyperlipidemia Palpitations Myalgia, unspecified site Other specified hypothyroidism Other pulmonary embolism without acute cor pulmonale Surgical History Status post bilateral inguinal hernia repair Family History Father Heart disease Mother Heart disease Hyperlipidemia Hypertension Thyroid disease Stroke Diabetes Brother Heart disease Grandmother Hypertension Hyperlipidemia Thyroid disease Diabetes Grandfather Hypertension Other Lung disease Social History Smoking and tobacco/nicotine status: current every day tobacco/nicotine user (1/2 ppd) cigarettes Packs smoked per day: 0.5 and e-cigarettes E-Cigarette Details: vaporizer device and with nicotine Current gender identity: Female Data Anesthesia Cardiac Studies: Echocardiogram 01/14/23 Sestamibi Stress Test (Cardiology) 01/14/23 Holter Monitor 01/15/23
[2024-08-09] MEDS: labetalol 5 mg/mL SDV 20mL IVP (11:45)
--- NOTE | 2024-08-09 12:10 | PM.OP ---
Operative Report Date of procedure: August 09, 2024 Pre-op diagnosis: postmenopausal bleeding Post-op diagnosis: same Post-op findings: One 3.5 cm endometrial polyp Minimal endometrial tissue Normal appearing cervix Procedure done: Hysteroscopy Endometrial sampling and polypectomy with Myosure Curettage of uterus Implants: none Specimens removed/disposition: endometrial tissue Surgeon: Yuri Ron MD Anesthesia: MAC Estimated blood loss (mL): 0 Complications: none Findings: One 3.5 cm endometrial polyp Minimal endometrial tissue Normal appearing cervix Condition: stable Disposition: PACU Brief History: 54 y.o. with postmenopausal bleeding Procedure: Informed consent signed. Patient was taken to the operating room. Anesthesia was induced. Patient was placed in dorsolithotomy position, prepped and draped for hysteroscopy. A bivalve speculum was placed in the vagina. The cervix and vagina were normal. The cervix was high in the vaginal canal. The anterior lip of the cervix was grasped with a sharp-toothed tenaculum. The cervix was serially dilated with Hegar dilators. The uterus was sounded to 8 cm. A hysteroscope was placed into the endometrial cavity. There was one 3.5 cm endometrial polyp. Minimal endometrial tissue was seen. The endocervical canal was normal. The endometrial cavity was otherwise normal. A Myosure device was then inserted and the endometrial polyp was removed and sent to pathology. Endometrial sampling was also done. The endometrial cavity was seen to be intact. The hysteroscope and Myosure were then removed. Curettage was done with a small curette. Endometrial tissue was sent to pathology. The sharp-toothed tenaculum was removed. There was no bleeding from the endometrial cavity or cervix. The patient was then placed supine and awakened and taken to the PACU. Postop condition: stable EBL: none Sponge and instruments counts were normal x 2 Complications: none
--- NOTE | 2024-08-09 12:43 | ANE.PACU2 ---
Inpatient post-anesthesia follow up: Airway intact: Yes Vital signs: Temperature 98.0 F Pulse Rate 67 Respiratory Rate 17 Blood Pressure 164/96 Pulse Oximetry 92 Oxygen Delivery Me thod Room Air Oxygen Flow Rate Fraction of Inspir ed Oxygen Hydration adequate: Yes Nausea and vomiting: No Pain level: 1 Mental status: Baseline
== END 2024-08-09 12:43 | disposition home or self-care (01) ==
PROVIDERS: PCP Family Medicine; Visit Provider Obstetrics & Gynecology
PROC: 0UJD8ZZ Inspection of Uterus and Cervix, Via Natural or Artificial Opening Endoscopic (ICD-10-PCS; CPT 58555; principal; 2024-08-09 10:30)
PROC: (CPT 58558; 2024-08-09 10:30)
DX: N95.0 Postmenopausal bleeding (principal); N84.0 Polyp of corpus uteri; I10 Essential (primary) hypertension; E03.9 Hypothyroidism, unspecified; Z86.711 Personal history of pulmonary embolism; E78.2 Mixed hyperlipidemia; E66.01 Morbid (severe) obesity due to excess calories; Z68.35 Body mass index [BMI] 35.0-35.9, adult; F17.210 Nicotine dependence, cigarettes, uncomplicated; F17.290 Nicotine dependence, other tobacco product, uncomplicated
CPT/HCPCS: 58558; 88305; J1100; J2250; J2405; J2704; J3010; J3490; J7030; J9999

== ENCOUNTER → 2024-08-19 10:22 | Outpatient (BNVA) | payer MEDICAID, SELFPAY | PROVIDERS: PCP Family Medicine; Visit Provider Specialist | DX: M17.12 Unilateral primary osteoarthritis, left knee (principal) | CPT/HCPCS: 20610; J1100; J2795; J3301; J9999 ==

== ENCOUNTER 2024-10-05 12:55 | Outpatient (CLI) | payer MEDICAID, SELFPAY ==
--- NOTE | 2024-10-05 13:03 | CT_ITS ---
WS: [id number] LDCT LUNG CANCER SCREENING HISTORY: NICOTINE DEPENDENCE, CIGARETTES TECHNIQUE: Axial imaging performed from the apices to 1 cm below the costophrenic angles. Coronal and sagittal reformats are submitted with axial MIP series. All CT scans at [facility] use at least one of these dose optimization techniques: automated exposure control; mA and/or kV adjustment per patient size (includes targeted exams where dose is matched to clinical indication); or iterative reconstruction. DLP: 69.11 mGy.cm DIvol: Mean CTDIvol: 1.60 (mGy) COMPARISON: 05/15/2023 Diagnostic quality: Satisfactory Lungs: Lung nodule decreased in the prior inspiration. No pulmonary mass, nodule or pneumonia. No endobronchial lesions. Heart: Normal size heart with no pericardial effusion.. Other findings: Normal size aorta and pulmonary artery. Limited evaluation of the mediastinum and hilum. Prior cholecystectomy. CT/CT lung screening [id number] IMPRESSION: LUNG-RADS: 1-Negative FOLLOW UP: 12 Month: Continue annual screening with LDCT OTHER FINDINGS (S MODIFIER): None.
== END 2024-10-05 12:56 | disposition home or self-care (01) ==
LOC: RAD 12:57
PROVIDERS: PCP Family Medicine; Visit Provider Family Medicine
DX: Z12.2 Encounter for screening for malignant neoplasm of respiratory organs (principal); F17.210 Nicotine dependence, cigarettes, uncomplicated
CPT/HCPCS: 71271

== ENCOUNTER → 2024-10-20 15:54 | Outpatient (BNVA) | payer MEDICAID, SELFPAY | PROVIDERS: PCP Family Medicine; Visit Provider Obstetrics & Gynecology | DX: Z12.4 Encounter for screening for malignant neoplasm of cervix (principal) | CPT/HCPCS: 87624 ==

== ENCOUNTER → 2024-11-03 11:17 | Outpatient (BNVA) | payer MEDICAID, SELFPAY | PROVIDERS: PCP Family Medicine; Visit Provider Obstetrics & Gynecology | DX: Z13.89 Encounter for screening for other disorder (principal); R10.2 Pelvic and perineal pain | CPT/HCPCS: 76830 ==

== ENCOUNTER → 2024-11-23 13:02 | Outpatient (BNVA) | payer MEDICAID, SELFPAY | PROVIDERS: PCP Family Medicine; Visit Provider Specialist | DX: M17.12 Unilateral primary osteoarthritis, left knee (principal) | CPT/HCPCS: 20610; J1100; J2795; J3301; J9999 ==

== ENCOUNTER 2025-01-05 09:28 | Outpatient (CLI) | payer MEDICAID, SELFPAY ==
--- NOTE | 2025-01-05 10:02 | XR_ITS ---
WS: [id number] XR lumbar spine 2-3V* [id number] REASON FOR EXAM: DEGENERATION OF INVERTEBRAL DISC OF LUMBAR REGION FINDINGS: Moderate rotatory levoscoliosis. Straightening of the normal lordosis. No significant vertebral body abnormality. Severe narrowing of the L4-L5 and L5-S1 disc spaces with moderate endplate sclerosis and osteophytosis. Mild narrowing of the L1-L2 disc space. Mild osteophytosis in the remainder of the lumbar spine. XR/XR lumbar spine 2-3V* [id number] IMPRESSION: Lumbar degenerative spondylosis as above.
--- NOTE | 2025-01-05 10:02 | XR_ITS ---
WS: [id number] XR cervical spine 3V* [id number] REASON FOR EXAM: NECK PAIN FINDINGS: Mild straightening of the normal lordosis. Severe disc space narrowing with significant endplate sclerosis and anterior and posterior osteophytosis C3-C7. 3. Millimeters of anterolisthesis of C6 in relation to C5 and C5 in relation to C4. Normal facet joint alignment. Moderate degenerative arthropathy in the facet joints at C6-C7. XR/XR cervical spine 3V* [id number] IMPRESSION: Multilevel degenerative spondylosis of the cervical spine.
== END 2025-01-05 09:29 | disposition home or self-care (01) ==
PROVIDERS: PCP Family Medicine
DX: M48.061 Spinal stenosis, lumbar region without neurogenic claudication (principal); M51.360 Other intervertebral disc degeneration, lumbar region with discogenic back pain only; M41.86 Other forms of scoliosis, lumbar region; M47.816 Spondylosis without myelopathy or radiculopathy, lumbar region; M51.379 Other intervertebral disc degeneration, lumbosacral region without mention of lumbar back pain or lower extremity pain; M48.07 Spinal stenosis, lumbosacral region
CPT/HCPCS: 72040; 72100

== ENCOUNTER 2025-03-17 08:38 | Outpatient (CLI) | payer MEDICAID, SELFPAY ==
--- NOTE | 2025-03-17 08:43 | IR_ITS ---
WS: [id number] MYELOGRAM CERVICAL AND LUMBAR SPINE Fluoroscopic guided cervical and lumbar myelogram CLINICAL INFORMATION: NEUROFORAMINAL STENOSIS OF CERVICAL SPINE TECHNIQUE: The procedure, including risks, benefits, and complications, were discussed with the patient who agreed to proceed. A timeout was performed to confirm correct patient, procedure, and site. Using sterile technique, the patient was prepped and draped in the usual sterile fashion. After administration of local anesthesia using 1% preservative-free lidocaine and using fluoroscopic guidance, a 22-gauge spinal needle was advanced into the subarachnoid space at the L2-3 level. Subsequently 13 cc of Omnipaque 240 was administered into the thecal sac. The needle was removed and hemostasis was achieved. Spot fluoroscopic images were obtained of the lumbar spine. Subsequently the table was tilted down and contrast flowed freely into the cervical spine. Spot fluoroscopic images were obtained. FLUOROSCOPIC TIME: 5min [id number] # of spot films: 13 IR/IR myelogram spine cervic/lumb IMPRESSION: 1. Uncomplicated lumbar and cervical myelogram. 2. Please see CT report for anatomic detail
--- NOTE | 2025-03-17 08:55 | CT_ITS ---
WS: [id number] CT LUMBAR MYELOGRAM CLINICAL INFORMATION: Back pain COMPARISON: CT myelogram 2019 TECHNIQUE: Noncontrast CT of the lumbar spine with coronal and sagittal reformatted images. Intrathecal contrast was administered. CT lumbar myelogram was obtained post intrathecal contrast. DLP: 368.50 mGy.cm (accession [id number]), 504.60 mGy.cm (accession [id number]) All CT scans at [facility] use at least one of these dose optimization techniques: automated exposure control; mA and/or kV adjustment per patient size (includes targeted exams where dose is matched to clinical indication); or iterative reconstruction. FINDINGS: Mild lumbar curve. No acute compression. Degenerative disc disease worse at L4- L5 and L5-S1 with endplate degenerative changes. Vacuum disc phenomenon L4-5. Disc narrowing L5-S1 has slightly progressed since 2019. Disc bulging at L1-L3 appears progressed. L1-L2: Shallow RIGHT paracentral protrusion with slight narrowing of the RIGHT subarticular recess. Mild facet arthropathy. Foramen are patent. Disc bulging at this level progressed. L2-L3: Mild annular bulging with mild central canal stenosis. Narrowing of the subarticular recess RIGHT greater than LEFT. Mild facet arthropathy. Central canal stenosis progressed compared to previous. Mild facet arthropathy. Mild RIGHT foraminal narrowing. L3-L4: Mild disc bulge with narrowing of the RIGHT greater than LEFT subarticular recess. Mild central canal stenosis. Mild facet arthropathy. Mild RIGHT foraminal narrowing. Central canal stenosis at this level progressed. L4-L5: Postoperative changes laminectomy defects. Narrowing of the RIGHT subarticular recess with slight impingement on the traversing RIGHT L5 nerve root. Loss of the disc space with endplate degenerative changes and vacuum disc phenomenon. Moderate facet arthropathy. Moderate RIGHT foraminal narrowing with impingement on the exiting RIGHT L4 nerve root. This appears slightly progressed compared to previous. LEFT foramen is patent. L5-S1: Slight retrolisthesis. Vacuum disc phenomenon. Moderate facet arthropathy. Moderate LEFT and mild RIGHT foraminal narrowing. Visualized pelvic bony structures: Normal. Paravertebral soft tissues: Normal. CT/CT lumbar spine wo con* [id number] IMPRESSION: 1. Mild central canal stenosis L2-3 and L3-4 with narrowing of the RIGHT great er than LEFT subarticular recess progressed compared to previous. 2. Narrowing of the RIGHT L4-5 subarticular recess with slight encroachment on traversing RIGHT L5 nerve root has progressed. Moderate RIGHT L4-5 foraminal n arrowing. 3. Moderate LEFT L5-S1 foraminal narrowing. 4. Complete loss of disc height L4-L5 and L5-S1 with endplate degenerative rebekah nges and vacuum disc phenomenon.
--- NOTE | 2025-03-17 08:58 | CT_ITS ---
WS: [id number] CT CERVICAL MYELOGRAM TECHNIQUE: CT of the cervical spine coronal and sagittal reformatted images post intrathecal administration of contrast. CLINICAL INFORMATION: CERVIVAGIA COMPARISON: CT cervical 2015 DLP: 386.[address] scans at [facility] use at least one of these dose optimization techniques: automated exposure control; mA and/or kV adjustment per patient size (includes targeted exams where dose is matched to clinical indication); or iterative reconstruction. FINDINGS: Straightening of the normal cervical lordosis. Moderate spondylitic changes. Disc space narrowing throughout the cervical spine has progressed since 2015. Anterior hypertrophic changes. C2-C3: Moderate facet arthropathy. Spinal canal and foramen are patent. C3-C4: Disc osteophyte complex with mild central canal stenosis. Slight indentation RIGHT ventral cervical cord. Moderate RIGHT bony foraminal narrowing. LEFT foramen is patent. Uncovertebral joint hypertrophy. Mild facet arthropathy. C4-C5: Disc osteophyte complex with endplate ridging. Mild central canal stenosis. Narrowing of the LEFT subarticular recess. Severe LEFT bony foraminal narrowing. RIGHT foramen is patent. C5-C6: Disc osteophyte complex with mild to moderate central canal stenosis. Moderate bilateral bony foraminal narrowing, RIGHT greater than LEFT. Moderate facet arthropathy and uncovertebral joint hypertrophy. C6-C7: Disc osteophyte complex with endplate ridging. Moderate central canal stenosis with indentation of the LEFT ventral cervical cord. LEFT paracentral disc osteophyte protrusion. Severe LEFT and moderate RIGHT bony foraminal narrowing. Uncovertebral joint hypertrophy. Moderate facet arthropathy. C7-T1: Shallow central protrusion with slight indentation of the cervical cord. Mild central canal stenosis. Mild LEFT greater than RIGHT foraminal narrowing. T1-T2: Shallow central protrusion T1-2 with slight contact of the thoracic cord and mild central canal stenosis. Mild bilateral foraminal narrowing. Lung apices are well aerated. CT/CT cervical spine w con [id number] IMPRESSION: 1. Moderate central canal stenosis C6-7 with disc osteophyte complex and LEFT paracentral disc osteophyte protrusion with indentation on the cervical cord. 2. Severe LEFT C6-7 bony foraminal narrowing. Moderate RIGHT C6-7 bony foramin al narrowing. 3. Mild central canal stenosis C3-C4 C4-C5 and mild to moderate C5-6 described above. 4. Multilevel moderate to severe bony foraminal narrowing worse at LEFT C4-5, RIGHT C5-6, LEFT C6-7. 5. Shallow central protrusion T1-2 with mild central canal stenosis and slight contact of the upper thoracic cord.
--- NOTE | 2025-03-17 09:56 | CT_ITS ---
WS: [id number] CT LUMBAR MYELOGRAM CLINICAL INFORMATION: Back pain COMPARISON: CT myelogram 2019 TECHNIQUE: Noncontrast CT of the lumbar spine with coronal and sagittal reformatted images. Intrathecal contrast was administered. CT lumbar myelogram was obtained post intrathecal contrast. DLP: 368.50 mGy.cm (accession [id number]), 504.60 mGy.cm (accession [id number]) All CT scans at [facility] use at least one of these dose optimization techniques: automated exposure control; mA and/or kV adjustment per patient size (includes targeted exams where dose is matched to clinical indication); or iterative reconstruction. FINDINGS: Mild lumbar curve. No acute compression. Degenerative disc disease worse at L4- L5 and L5-S1 with endplate degenerative changes. Vacuum disc phenomenon L4-5. Disc narrowing L5-S1 has slightly progressed since 2019. Disc bulging at L1-L3 appears progressed. L1-L2: Shallow RIGHT paracentral protrusion with slight narrowing of the RIGHT subarticular recess. Mild facet arthropathy. Foramen are patent. Disc bulging at this level progressed. L2-L3: Mild annular bulging with mild central canal stenosis. Narrowing of the subarticular recess RIGHT greater than LEFT. Mild facet arthropathy. Central canal stenosis progressed compared to previous. Mild facet arthropathy. Mild RIGHT foraminal narrowing. L3-L4: Mild disc bulge with narrowing of the RIGHT greater than LEFT subarticular recess. Mild central canal stenosis. Mild facet arthropathy. Mild RIGHT foraminal narrowing. Central canal stenosis at this level progressed. L4-L5: Postoperative changes laminectomy defects. Narrowing of the RIGHT subarticular recess with slight impingement on the traversing RIGHT L5 nerve root. Loss of the disc space with endplate degenerative changes and vacuum disc phenomenon. Moderate facet arthropathy. Moderate RIGHT foraminal narrowing with impingement on the exiting RIGHT L4 nerve root. This appears slightly progressed compared to previous. LEFT foramen is patent. L5-S1: Slight retrolisthesis. Vacuum disc phenomenon. Moderate facet arthropathy. Moderate LEFT and mild RIGHT foraminal narrowing. Visualized pelvic bony structures: Normal. Paravertebral soft tissues: Normal. CT/CT lumbar spine w con [id number] IMPRESSION: 1. Mild central canal stenosis L2-3 and L3-4 with narrowing of the RIGHT great er than LEFT subarticular recess progressed compared to previous. 2. Narrowing of the RIGHT L4-5 subarticular recess with slight encroachment on traversing RIGHT L5 nerve root has progressed. Moderate RIGHT L4-5 foraminal n arrowing. 3. Moderate LEFT L5-S1 foraminal narrowing. 4. Complete loss of disc height L4-L5 and L5-S1 with endplate degenerative rebekah nges and vacuum disc phenomenon.
[2025-03-17] MEDS: iohexol 240 mg/mL 50 mL Btl 25 ML INTRATHECA (11:22)
== END 2025-03-17 08:39 | disposition home or self-care (01) ==
LOC: RAD 08:39
PROVIDERS: PCP Family Medicine; Visit Provider Nurse Practitioner Family
DX: M48.02 Spinal stenosis, cervical region (principal); M48.03 Spinal stenosis, cervicothoracic region; M48.04 Spinal stenosis, thoracic region; M47.812 Spondylosis without myelopathy or radiculopathy, cervical region; M47.816 Spondylosis without myelopathy or radiculopathy, lumbar region; M47.817 Spondylosis without myelopathy or radiculopathy, lumbosacral region; M51.360 Other intervertebral disc degeneration, lumbar region with discogenic back pain only; M48.061 Spinal stenosis, lumbar region without neurogenic claudication
CPT/HCPCS: 62305; 72126; 72131; 72132; J9999; Q9966

== ENCOUNTER → 2025-03-22 10:08 | Outpatient (BNVA) | payer MEDICAID, SELFPAY | PROVIDERS: PCP Family Medicine; Visit Provider Specialist | DX: S82.831A Other fracture of upper and lower end of right fibula, initial encounter for closed fracture (principal); M17.12 Unilateral primary osteoarthritis, left knee; W19.XXXA Unspecified fall, initial encounter | CPT/HCPCS: 20610; 27786; 73610; 99214 ==